=== PATIENT | female | born 1965 | race Caucasian/White ===

== ENCOUNTER 2022-08-23 11:47 | Outpatient (CLI) | payer OTHER | END 2022-08-23 11:48 | disposition home or self-care (01) | LOC: CSHMAMMO 11:47 | PROVIDERS: ATTEND Nurse Practitioner | DX: Z12.31 Encounter for screening mammogram for malignant neoplasm of breast (principal) | CPT/HCPCS: 77063; 77067 ==

== ENCOUNTER 2024-01-17 10:36 | Outpatient (CLI) | payer OTHER | END 2024-01-17 10:37 | disposition home or self-care (01) | LOC: CSHMAMMO 10:36 | PROVIDERS: ATTEND Family Medicine | DX: Z12.31 Encounter for screening mammogram for malignant neoplasm of breast (principal); Z98.890 Other specified postprocedural states | CPT/HCPCS: 77063; 77067 ==